=== PATIENT | male | born 1980 | race Caucasian/White ===

== ENCOUNTER 2017-12-05 14:38 | Emergency (ER) | payer MEDICAID, OTHER ==
[2017-12-05] MEDS ORDERED: Zofran 4 MG/2 ML VIAL ONE (14:51)
[2017-12-05] MEDS ORDERED: Zofran 4 MG/2 ML VIAL IV ONE (14:52)
[2017-12-05] MEDS ORDERED: Phenergan 25 MG INJ IV ONE (15:01)
[2017-12-05] MEDS ORDERED: Phenergan 25 MG INJ ONE (15:05)
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
[2017-12-05] MEDS ORDERED: MORPHINE SULFATE 4 MG INJ IV ONE (15:15)
[2017-12-05] MEDS ORDERED: Sodium Chloride 0.9% 1000 ML 1,000 ML IV STA (15:15)
[2017-12-05] MEDS ORDERED: Sodium Chloride 0.9% 1000 ML 1,000 ML ONE (15:21)
[2017-12-05] MEDS ORDERED: MORPHINE SULFATE 4 MG INJ ONE (15:21)
[2017-12-05 15:39] LABS: BASOPHIL % 0.3 % (0.0-0.4); Basophil (Absolute #) 0.05 (0-0.4); Eosinophil % 0.7 % (0.00-5.0); Granulocyte Absolute (ANC) 10.99 (1.4-6.9); Granulocytes % 75.9 % (36.0-66.0); Hematocrit 46.7 % (42-50); Hemoglobin 16.4 gm/dl (12.5-18.0); Lymphocyte (Absolute #) 2.02 (1.0-4.6); Mean Cell Volume 88.4 fl (78-100); Mean Corpuscular Hemoglobin 31.1 pg (26-32); Mean Corpuscular Hgb Concent. 35.1 g/dl (32-36); Mean Platelet Volume 10.3 fl (6-9.5); Monocyte (Absolute #) 1.32 (0.0-1.3); Monocytes % 9.1 % (0.0-12.0); Platelet Count 265 K/mm3 (150-450); Red Blood Count 5.28 M/mm3 (4.1-5.6); Red Cell Distribution Width 13.6 % (11.5-14.0); White Blood Count 14.5 K/mm3 (4.0-10.5)
[2017-12-05 16:14] LABS: ALBUMIN 4.5 g/dL (3.5-5.0); ALKALINE PHOSPHATASE 74 U/L (38-126); ANION GAP 16.2 MEQ/L (5-15); BLOOD UREA NITROGEN 12 mg/dL (9-20); CHLORIDE 105 mmol/L (98-107); Calcium 9.6 mg/dL (8.4-10.2); Carbon Dioxide 23 mmol/L (22-30); Creatinine 1 0.95 mg/dL (0.66-1.25); Glucose 85 mg/dL (74-106); LIPASE 40 U/L (23-300); Potassium 4.2 mmol/L (3.5-5.1); SGOT/AST 132 U/L (17-59); SGPT/ALT 281 U/L (0-50); SODIUM 141 mmol/L (137-145); Total Protein 7.1 g/dL (6.3-8.2)
--- NOTE | 2017-12-05 16:18 | XRAY ---
Indication: Abdominal pain and vomiting. Multiple contiguous axial images obtained through the abdomen and pelvis without contrast as ordered. Comparison: CT pelvis March 20, 2012. Lung bases are clear. Heart is not enlarged. Images through the abdomen slightly degraded by respiration artifact. Noncontrasted stomach and bowel loops appear nonobstructed. Normal appendix. No free fluid/air. Faint nonobstructing bilateral nephrocalcinosis. 5 mm round right lobe hepatic hypodense lesion. Remaining liver, gallbladder, pancreas, spleen, adrenal glands, kidneys, ureters, and bladder appear unremarkable for noncontrast exam. Again mild bilateral iliac calcifications. No AAA. Osseous structures intact. No ventral or inguinal hernias. Impression: 1. Respiration artifact. 2. 5 mm round hepatic hypodense lesion, possible cyst. 3. Nonobstructing bilateral nephrocalcinosis. 4. Remaining CT abdomen/pelvis without contrast exam is negative. CTDI 18.41
[2017-12-05 16:19] VITALS: BP 104/56; PULSE 115
[2017-12-05 16:50] LABS: Appearance SLIGHTLY CLOUDY (CLEAR); Bilirubin NEGATIVE (NEGATIVE); Blood LARGE Ery/ul (0-5); Glucose NEGATIVE (NEGATIVE); Ketones SMALL (NEGATIVE); Leukocyte Esterase NEGATIVE (NEGATIVE); Nitrite NEGATIVE (NEGATIVE); Protein,Urine Dip 100 (Negative); Specific Gravity 1.023 (1.005-1.025); Urobilinogen 2 mg/dL (0-1)
[2017-12-05 17:22] VITALS: O2SAT 94
== END 2017-12-05 17:31 | disposition left against medical advice (07) ==
LOC: ED 14:38
DX: K92.0 Hematemesis (principal); R10.33 Periumbilical pain; R31.9 Hematuria, unspecified
CPT/HCPCS: 36415; 74176; 80053; 81001; 82271; 83605; 83690; 85025; 87086; 96360; 96374; 96375; 99284; J2270; J2405; J2550

== ENCOUNTER 2017-12-05 18:23 | Emergency (ER) | payer OTHER ==
[2012-01-20 14:12] VITALS: BP 135/83
== END 2017-12-05 19:19 | disposition left against medical advice (07) ==
LOC: ED 18:23
DX: Z53.21 Procedure and treatment not carried out due to patient leaving prior to being seen by health care provider (principal)

== ENCOUNTER 2018-05-31 16:19 | Emergency (ER) | payer OTHER ==
[2018-05-31] MEDS ORDERED: Sodium Chloride 0.9% 1000 ML 1,000 ML IV STA (16:31)
[2018-05-31] MEDS ORDERED: Sodium Chloride 0.9% 1000 ML 1,000 ML ONE (16:32)
[2018-05-31 16:37] LABS: BASOPHIL % 0.6 % (0.0-0.4); Basophil (Absolute #) 0.05 (0-0.4); Eosinophil (Absolute #) 0.26 (0-0.5); Granulocyte Absolute (ANC) 4.77 (1.4-6.9); Granulocytes % 55.4 % (36.0-66.0); Hematocrit 47.4 % (42-50); Hemoglobin 16.2 gm/dl (12.5-18.0); Lymphocyte (Absolute #) 2.64 (1.0-4.6); Lymphocytes % 30.7 % (24.0-44.0); Mean Corpuscular Hemoglobin 31.1 pg (26-32); Mean Corpuscular Hgb Concent. 34.2 g/dl (32-36); Mean Platelet Volume 10.7 fl (6-9.5); Monocyte (Absolute #) 0.89 (0.0-1.3); Monocytes % 10.3 % (0.0-12.0); Platelet Count 230 K/mm3 (150-450); Red Blood Count 5.21 M/mm3 (4.1-5.6); Red Cell Distribution Width 13.2 % (11.5-14.0); White Blood Count 8.6 K/mm3 (4.0-10.5)
[2018-05-31] MEDS ORDERED: Zofran 4 MG/2 ML VIAL IV ONE (16:41)
[2018-05-31] MEDS ORDERED: TORAdol 30 mg Injection IV ONE (16:41)
[2018-05-31 16:43] LABS: ALBUMIN 3.9 g/dL (3.5-5.0); ALKALINE PHOSPHATASE 57 U/L (38-126); AMYLASE 75 U/L (30-110); ANION GAP 12.2 MEQ/L (5-15); BLOOD UREA NITROGEN 14 mg/dL (9-20); CHLORIDE 106 mmol/L (98-107); Calcium 9.4 mg/dL (8.4-10.2); Carbon Dioxide 25 mmol/L (22-30); Creatinine 1 0.77 mg/dL (0.66-1.25); Glucose 96 mg/dL (74-106); LIPASE 67 U/L (23-300); SGOT/AST 95 U/L (17-59); SGPT/ALT 180 U/L (0-50); SODIUM 138 mmol/L (137-145); Total Protein 6.8 g/dL (6.3-8.2)
--- NOTE | 2018-05-31 16:47 | ERPHSYRPT ---
- History of Present Illness Time Seen by Provider: 05/31/18 16:30 Historian: patient Exam Limitations: clinical condition Patient Subjective Stated Complaint: RIGHT LOWER ABD PAIN FOR ONE WEEK. VOMITED YESTERDAY. STATES PAIN IS SHARP. Triage Nursing Assessment: TO ROOM PER EMS COT. SKIN W/D, COLOR NORMAL, RESP EASY. ABD SOFT, GUARDING RLQ. Physician History: PATIENT WITH A HISTORY OF KIDNEY STONES COMPLAINS OF RIGHT LOWER ABDOMINAL PAINS FOR 2 WEEKS, ASSOCIATED WITH NAUSEA, DENIES EMESIS, FEVER OR URINARY SYMPTOMS FREQUENCY, URGENCY OR DYSURIA. Timing/Duration: week(s) Activities at Onset: none Quality: stabbing Abdominal Pain Onset Location: LLQ Pain Radiation: no radiation Severity of Pain-Max: severe Severity of Pain-Current: severe Modifying Factors: Improves With: nothing Associated Symptoms: denies symptoms Previous symptoms: same symptoms as today Allergies/Adverse Reactions: No Known Drug Allergies Allergy (Verified 05/31/18 16:28) Home Medications: No Home Meds [No Home Meds] 08/02/13 [History] Hx Tetanus, Diphtheria Vaccination/Date Given: Yes (2014) Hx Influenza Vaccination/Date Given: No Hx Pneumococcal Vaccination/Date Given: No - Review of Systems Constitutional: No Fever, No Chills Eyes: No Symptoms Ears, Nose, & Throat: No Symptoms Respiratory: No Symptoms, No Cough, No Dyspnea Cardiac: No Symptoms, No Chest Pain, No Edema, No Syncope Abdominal/Gastrointestinal: Abdominal Pain, Nausea, No Vomiting, No Diarrhea Genitourinary Symptoms: No Symptoms, No Dysuria Musculoskeletal: No Symptoms, No Back Pain, No Neck Pain Skin: No Rash Neurological: No Dizziness, No Focal Weakness, No Sensory Changes Psychological: No Symptoms Endocrine: No Symptoms All Other Systems: Reviewed and Negative - Past Medical History Pertinent Past Medical History: No Neurological History: No Pertinent History ENT History: No Pertinent History Cardiac History: No Pertinent History Respiratory History: No Pertinent History Endocrine Medical History: No Pertinent History Musculoskeletal History: No Pertinent History GI Medical History: No Pertinent History Psycho-Social History: No Pertinent History Male Reproductive Disorders: No Pertinent History - Past Surgical History Past Surgical History: Yes Neuro Surgical History: No Pertinent History Respiratory: No Pertinent History Gastrointestinal: No Pertinent History Genitourinary: No Pertinent History Musculoskeletal: No Pertinent History Other Surgical History: RIGHT ARM SURGERY - Social History Smoking Status: Current every day smoker How long have you smoked: 10 Exposure to second hand smoke: Yes Alcohol Use: Socially Drug Use: marijuana Patient Lives Alone: No Significant Family History: no pertinent family hx - Nursing Vital Signs Nursing Vital Signs: Initial Vital Signs Temperature 97.9 F 05/31/18 16:21 Pulse Rate 76 05/31/18 16:21 Respiratory Rate 16 05/31/18 16:21 Blood Pressure 129/72 05/31/18 16:21 O2 Sat by Pulse Oximetry 97 05/31/18 16:21 Pain Scale Pain Intensity 5 - Physical Exam General Appearance: moderate distress, alert Eye Exam: PERRL/EOMI, eyes nml inspection Ears, Nose, Throat Exam: normal ENT inspection, pharynx normal, moist mucous membranes Neck Exam: normal inspection, non-tender, supple, full range of motion Respiratory Exam: normal breath sounds, lungs clear, No respiratory distress Cardiovascular Exam: regular rate/rhythm, normal heart sounds Gastrointestinal/Abdomen Exam: soft, normal bowel sounds, tenderness (RIGHT LOWER QUAD TENDERNESS), other (WITH GUARDING), No mass Back Exam: normal inspection, normal range of motion, No CVA tenderness, No vertebral tenderness Extremity Exam: normal inspection, normal range of motion, pelvis stable Neurologic Exam: alert, oriented x 3, cooperative, normal mood/affect, nml cerebellar function, sensation nml, No motor deficits Skin Exam: normal color, warm, dry Lymphatic Exam: inguinal node tender (L) SpO2: 97 - CT Exams Abdomen/Pelvis CT Interpretation: Tele-radiologist Report (NORMAL APPENDIX, THERE IS PUNCTATE NONOBSTRUCTING RIGHT NEPHROLITHIASIS) Ordered Tests: Active Orders 24 hr Category Date Time Status Clean Catch Urine Specimen STAT Care 05/31/18 16:31 Active IV Insertion STAT Care 05/31/18 16:31 Active ABDOMEN AND PELVIS W&WO CONTRA [CT] Stat Exams 05/31/18 16:39 Taken AMYLASE Stat Lab 05/31/18 16:35 Completed CBC W DIFF Stat Lab 05/31/18 16:35 Completed CMP Stat Lab 05/31/18 16:35 Completed LIPASE Stat Lab 05/31/18 16:35 Completed UA W/RFX UR CULTURE Stat Lab 05/31/18 16:45 Completed Urine Triage Profile Stat Lab 05/31/18 16:45 Completed Medication Summary Discontinued Medications Generic Name Dose Route Start Last Admin Trade Name Freq PRN Reason Stop Dose Admin Hydromorphone HCl 1 mg 05/31/18 16:52 05/31/18 16:57 Hydromorphone 1 Mg/Ml Ampule IV 05/31/18 16:53 1 mg STAT ONE Administration Hydromorphone HCl Confirm 05/31/18 16:54 Hydromorphone 1 Mg/Ml Ampule Administered 05/31/18 16:55 Dose 1 mg .ROUTE .STK-MED ONE Sodium Chloride 1,000 mls @ 999 mls/hr 05/31/18 16:31 05/31/18 17:52 Sodium Chloride 0.9% 1000 Ml IV 05/31/18 17:31 Infused .Q1H1M STA Infusion Sodium Chloride Confirm 05/31/18 16:32 Sodium Chloride 0.9% 1000 Ml Administered 05/31/18 16:33 Dose 1,000 mls @ ud .ROUTE .STK-MED ONE Ketorolac Tromethamine 30 mg 05/31/18 16:41 05/31/18 16:55 Toradol 30 Mg Injection IV 05/31/18 16:42 30 mg STAT ONE Administration Ketorolac Tromethamine Confirm 05/31/18 16:50 Toradol 30 Mg Injection Administered 05/31/18 16:51 Dose 30 mg .ROUTE .STK-MED ONE Ondansetron HCl 4 mg 05/31/18 16:41 05/31/18 16:55 Zofran 4 Mg/2 Ml Vial IV 05/31/18 16:42 4 mg STAT ONE Administration Ondansetron HCl Confirm 05/31/18 16:50 Zofran 4 Mg/2 Ml Vial Administered 05/31/18 16:51 Dose 4 mg .ROUTE .STK-MED ONE Lab/Rad Data: Laboratory Result Diagrams 05/31/18 16:35 05/31/18 16:35 Laboratory Results 05/31/18 05/31/18 05/31/18 Range/Units 16:45 16:45 16:35 WBC (4.0-10.5) K/mm3 RBC (4.1-5.6) M/mm3 Hgb (12.5-18.0) gm/dl Hct (42-50) % MCV (78-100) fl MCH (26-32) pg MCHC (32-36) g/dl RDW (11.5-14.0) % Plt Count (150-450) K/mm3 MPV (6-9.5) fl Gran % (36.0-66.0) % Eos # (Auto) (0-0.5) Absolute Lymphs (auto) (1.0-4.6) Absolute Monos (auto) (0.0-1.3) Lymphocytes % (24.0-44.0) % Monocytes % (0.0-12.0) % Eosinophils % (0.00-5.0) % Basophils % (0.0-0.4) % Absolute Granulocytes (1.4-6.9) Basophils # (0-0.4) Sodium 138 (137-145) mmol/L Potassium 4.0 (3.5-5.1) mmol/L Chloride 106 (98-107) mmol/L Carbon Dioxide 25 (22-30) mmol/L Anion Gap 12.2 (5-15) MEQ/L BUN 14 (9-20) mg/dL Creatinine 0.77 (0.66-1.25) mg/dL Estimated GFR > 60.0 ML/MIN Glucose 96 (74-106) mg/dL Calcium 9.4 (8.4-10.2) mg/dL Total Bilirubin 0.50 (0.2-1.3) mg/dL AST 95 H (17-59) U/L ALT 180 H (0-50) U/L Alkaline Phosphatase 57 (38-126) U/L Serum Total Protein 6.8 (6.3-8.2) g/dL Albumin 3.9 (3.5-5.0) g/dL Amylase 75 (30-110) U/L Lipase 67 (23-300) U/L Urine Color YELLOW (YELLOW) Urine Appearance CLEAR (CLEAR) Urine pH 6.0 (5-6) Ur Specific [place] 1.017 (1.005-1.025) Urine Protein NEGATIVE (Negative) Urine Ketones NEGATIVE (NEGATIVE) Urine Blood NEGATIVE (0-5) Oswaldo/ul Urine Nitrite NEGATIVE (NEGATIVE) Urine Bilirubin NEGATIVE (NEGATIVE) Urine Urobilinogen 2 (0-1) mg/dL Ur Leukocyte Esterase NEGATIVE (NEGATIVE) Urine WBC (Auto) NONE (0-5) /HPF Urine RBC (Auto) NONE (0-2) /HPF U Epithel Cells (Auto) NONE (FEW) /HPF Urine Bacteria (Auto) NONE (NEGATIVE) /HPF Urine Culture Reflexed NO (NO) Urine Glucose NEGATIVE (NEGATIVE) mg/dL Urine Opiates Level NEGATIVE (NEGATIVE) Ur Methadone NEGATIVE (NEGATIVE) Urine Barbiturates NEGATIVE (NEGATIVE) Ur Phencyclidine (PCP) NEGATIVE (NEGATIVE) Urine Amphetamine NEGATIVE (NEGATIVE) U Benzodiazepine Level NEGATIVE (NEGATIVE) Urine Cocaine NEGATIVE (NEGATIVE) Urine Marijuana (THC) POSITIVE (NEGATIVE) 05/31/18 Range/Units 16:35 WBC 8.6 (4.0-10.5) K/mm3 RBC 5.21 (4.1-5.6) M/mm3 Hgb 16.2 (12.5-18.0) gm/dl Hct 47.4 (42-50) % MCV 91.0 (78-100) fl MCH 31.1 (26-32) pg MCHC 34.2 (32-36) g/dl RDW 13.2 (11.5-14.0) % Plt Count 230 (150-450) K/mm3 MPV 10.7 H (6-9.5) fl Gran % 55.4 (36.0-66.0) % Eos # (Auto) 0.26 (0-0.5) Absolute Lymphs (auto) 2.64 (1.0-4.6) Absolute Monos (auto) 0.89 (0.0-1.3) Lymphocytes % 30.7 (24.0-44.0) % Monocytes % 10.3 (0.0-12.0) % Eosinophils % 3.0 (0.00-5.0) % Basophils % 0.6 (0.0-0.4) % Absolute Granulocytes 4.77 (1.4-6.9) Basophils # 0.05 (0-0.4) Sodium (137-145) mmol/L Potassium (3.5-5.1) mmol/L Chloride (98-107) mmol/L Carbon Dioxide (22-30) mmol/L Anion Gap (5-15) MEQ/L BUN (9-20) mg/dL Creatinine (0.66-1.25) mg/dL Estimated GFR ML/MIN Glucose (74-106) mg/dL Calcium (8.4-10.2) mg/dL Total Bilirubin (0.2-1.3) mg/dL AST (17-59) U/L ALT (0-50) U/L Alkaline Phosphatase (38-126) U/L Serum Total Protein (6.3-8.2) g/dL Albumin (3.5-5.0) g/dL Amylase (30-110) U/L Lipase (23-300) U/L Urine Color (YELLOW) Urine Appearance (CLEAR) Urine pH (5-6) Ur Specific [place] (1.005-1.025) Urine Protein (Negative) Urine Ketones (NEGATIVE) Urine Blood (0-5) Oswaldo/ul Urine Nitrite (NEGATIVE) Urine Bilirubin (NEGATIVE) Urine Urobilinogen (0-1) mg/dL Ur Leukocyte Esterase (NEGATIVE) Urine WBC (Auto) (0-5) /HPF Urine RBC (Auto) (0-2) /HPF U Epithel Cells (Auto) (FEW) /HPF Urine Bacteria (Auto) (NEGATIVE) /HPF Urine Culture Reflexed (NO) Urine Glucose (NEGATIVE) mg/dL Urine Opiates Level (NEGATIVE) Ur Methadone (NEGATIVE) Urine Barbiturates (NEGATIVE) Ur Phencyclidine (PCP) (NEGATIVE) Urine Amphetamine (NEGATIVE) U Benzodiazepine Level (NEGATIVE) Urine Cocaine (NEGATIVE) Urine Marijuana (THC) (NEGATIVE) - Progress Progress: improved, pain not gone completely Progress Note: 05/31/18 17:20 IV NORMAL SALINE 1000ML/HR, ZOFRAN 4MG, TORADOL 30MG, DILAUDID 1MG IV Counseled pt/family regarding: lab results, diagnosis, need for follow-up, rad results - Departure Departure Disposition: Home Clinical Impression: RIGHT NONOBSTRUCTING NEPHROLITHIASIS Condition: Stable Critical Care Time: No Referrals: DOCTOR,NO FAMILY [NON-STAFF PHY W/O PRIVILEGES] - Additional Instructions: CALL UROLOGIST DR KENNEDY IN 3 DAYS FOR APPOINTMENT . STRAIN YOUR URINE FOR 1 WEEK. TORADOL 10MG EVERY 6 HOURS NEEDED FOR PAIN. FLOMAX 0.4MG DAILY FOR 10 DAYS. ALSO CONSULT YOUR PRIMARY CARE PROVIDER FOR FOLLOWUP. Prescriptions: Ketorolac Tromethamine [Toradol] 10 mg PO Q6HPRN PRN #20 tablet PRN Reason: Pain Tamsulosin HCl 0.4 mg [Flomax 0.4 MG] 0.4 mg PO DAILY #10 cap
[2018-05-31] MEDS ORDERED: TORAdol 30 mg Injection ONE (16:50)
[2018-05-31] MEDS ORDERED: Zofran 4 MG/2 ML VIAL ONE (16:50)
[2018-05-31] MEDS ORDERED: Hydromorphone 1 mg/ml Ampule IV ONE (16:52)
[2018-05-31 16:53] LABS: Appearance CLEAR (CLEAR); Bilirubin NEGATIVE (NEGATIVE); Blood NEGATIVE Ery/ul (0-5); Glucose NEGATIVE (NEGATIVE); Ketones NEGATIVE (NEGATIVE); Leukocyte Esterase NEGATIVE (NEGATIVE); Nitrite NEGATIVE (NEGATIVE); Protein,Urine Dip NEGATIVE (Negative); Specific Gravity 1.017 (1.005-1.025); Urobilinogen 2 mg/dL (0-1)
[2018-05-31] MEDS ORDERED: Hydromorphone 1 mg/ml Ampule ONE (16:54)
[2018-05-31 17:07] LABS: Amphetamine,Urine NEGATIVE (NEGATIVE); Barbiturate,Urine NEGATIVE (NEGATIVE); Benzodiazepine,Urine NEGATIVE (NEGATIVE); Cocaine,Urine NEGATIVE (NEGATIVE); Methadone,Urine NEGATIVE (NEGATIVE); Opiate,Urine NEGATIVE (NEGATIVE); PCP,Urine NEGATIVE (NEGATIVE); THC,Urine POSITIVE (NEGATIVE)
[2018-05-31 18:45] VITALS: O2SAT 97
[2018-05-31 18:50] VITALS: BP 123/80; PULSE 77
--- NOTE | 2018-06-03 15:11 | XRAY ---
Indication: Right lower abdomen pain 1 week. Emesis. Multiple contiguous axial images obtained through the abdomen and pelvis prior to and following 80 cc Isovue 370 contrast as ordered. Comparison: December 05, 2017. Lung bases remain clear. Heart is not enlarged. Noncontrasted images demonstrates stable nonobstructing faint bilateral nephrocalcinosis. No new pathologic visceral calcification/calculi. Noncontrasted stomach and bowel loops appear nonobstructed. Normal appendix. There is now moderate diffuse scattered colonic fecal debris throughout. No free fluid/air. Postcontrast images demonstrates normal visceral enhancement and renal excretion. Stable subcentimeter hepatic cyst. Spleen remains enlarged measuring 13.8 cm in greatest axial dimension. Remaining liver, gallbladder, pancreas, spleen, adrenal glands, kidneys, ureters, bladder, and aorta appear unremarkable. No pathologic retroperitoneal lymphadenopathy. Osseous structures intact. No ventral or inguinal hernias. Impression: 1. Stable nonobstructing bilateral nephrocalcinosis. 2. Stable tiny hepatic cyst and splenomegaly. 3. New fecal stasis without obstruction. 4. Remaining CT abdomen/pelvis with and without contrast exam is negative. Comment: Preliminary interpretation was made by C. No critical discrepancy. CTDI 20.65
== END 2018-05-31 18:56 | disposition home or self-care (01) ==
LOC: ED 16:19
DX: N20.0 Calculus of kidney (principal)
CPT/HCPCS: 36000; 36415; 74178; 80053; 80307; 81001; 82150; 83690; 85025; 96360; 96374; 96375; 99284; J1170; J1885; J2405

== ENCOUNTER 2018-10-31 20:15 | Emergency (ER) | payer OTHER ==
[2018-10-31 20:31] LABS: BASOPHIL % 0.6 % (0.0-0.4); Basophil (Absolute #) 0.05 (0-0.4); Eosinophil % 3.6 % (0.00-5.0); Eosinophil (Absolute #) 0.28 (0-0.5); Granulocyte Absolute (ANC) 4.64 (1.4-6.9); Granulocytes % 58.9 % (36.0-66.0); Hematocrit 46.5 % (42-50); Lymphocyte (Absolute #) 2.23 (1.0-4.6); Lymphocytes % 28.3 % (24.0-44.0); Mean Cell Volume 89.9 fl (78-100); Mean Corpuscular Hemoglobin 30.9 pg (26-32); Mean Corpuscular Hgb Concent. 34.4 g/dl (32-36); Mean Platelet Volume 11.1 fl (6-9.5); Monocyte (Absolute #) 0.68 (0.0-1.3); Monocytes % 8.6 % (0.0-12.0); Platelet Count 221 K/mm3 (150-450); Red Blood Count 5.17 M/mm3 (4.1-5.6); Red Cell Distribution Width 13.3 % (11.5-14.0); White Blood Count 7.9 K/mm3 (4.0-10.5)
[2018-10-31 20:42] LABS: ANION GAP 13.6 MEQ/L (5-15); BLOOD UREA NITROGEN 15 mg/dL (9-20); CHLORIDE 105 mmol/L (98-107); Calcium 9.3 mg/dL (8.4-10.2); Carbon Dioxide 25 mmol/L (22-30); Creatinine 1 0.84 mg/dL (0.66-1.25); Glucose 122 mg/dL (74-106); Potassium 3.6 mmol/L (3.5-5.1); SODIUM 139 mmol/L (137-145)
[2018-10-31 20:42] LABS: Appearance SLIGHTLY CLOUDY (CLEAR); Bacteria FEW /HPF (NEGATIVE); Bilirubin NEGATIVE (NEGATIVE); Blood LARGE Ery/ul (0-5); Epithelial Cells FEW /HPF (FEW); Glucose NEGATIVE (NEGATIVE); Ketones TRACE (NEGATIVE); Leukocyte Esterase NEGATIVE (NEGATIVE); Mucus MODERATE /HPF (NEGATIVE); Nitrite NEGATIVE (NEGATIVE); Protein,Urine Dip 100 (Negative); Specific Gravity 1.029 (1.005-1.025); Urobilinogen 2 mg/dL (0-1)
[2018-10-31 20:47] LABS: ETHYL ALCOHOL < 10 mg/dL (0-10)
[2018-10-31 20:50] LABS: Barbiturate,Urine NEGATIVE (NEGATIVE); Benzodiazepine,Urine NEGATIVE (NEGATIVE); Cocaine,Urine NEGATIVE (NEGATIVE); Methadone,Urine NEGATIVE (NEGATIVE); Opiate,Urine NEGATIVE (NEGATIVE); PCP,Urine NEGATIVE (NEGATIVE); THC,Urine POSITIVE (NEGATIVE)
[2018-10-31 21:10] LABS: RBC >101 /HPF (0-2)
[2018-10-31 21:20] LABS: Amphetamine,Urine POSITIVE (NEGATIVE)
[2018-10-31] MEDS ORDERED: TYLENOL 325 MG PO ONE (22:24)
[2018-10-31] MEDS ORDERED: Phenergan 25 MG INJ IM ONE (22:24)
[2018-10-31] MEDS ORDERED: BABY ASPIRIN 81 MG CHEW PO ONE (22:26)
[2018-10-31] MEDS ORDERED: TYLENOL 325 MG ONE (22:40)
[2018-10-31] MEDS ORDERED: Phenergan 25 MG INJ ONE (22:40)
[2018-10-31] MEDS ORDERED: BABY ASPIRIN 81 MG CHEW ONE (22:40)
--- NOTE | 2018-10-31 23:19 | ERPHSYRPT ---
- History of Present Illness Source: patient, family Exam Limitations: no limitations, clinical condition Patient Subjective Stated Complaint: pt's girlfriend states, "he's had vomiting today x4 hours, his speech became slurred the last hour and pt c/o numbness around his rt eye". Triage Nursing Assessment: pt alert and oriented x2, speech is garbled. girlfriend at bedside. Lungs clear, heart tones reg, abd soft with active bs x4 quad, non-tender. Pt denies headache but has a numbness over his right eye. Pupils are pinpoint. Pt states vision is blurry. Physician History: Pt is a 38 y/o male with a h/o previous CVA, that presented to the ED with symptoms of CVA. Pt states, he was vomiting today, multiple times, and then he felt something pop in his R eye, and he had numbness of the R face, could not open his R eye, and had slurred speech. Secondary to it, pt came to the ED. Timing/Duration: today Severity: moderate Character of Deficits: Right Facial, vision problems Deficits: no difficulties Baseline/Normal Cognition: alert oriented x 3 Baseline Gait: walks w/o assistance Associated Symptoms: nausea, vomiting, paresthesia (of the R face), slurred speech, vision changes Allergies/Adverse Reactions: No Known Drug Allergies Allergy (Verified 05/31/18 16:28) Home Medications: No Home Meds [No Home Meds] 08/02/13 [History] Hx Tetanus, Diphtheria Vaccination/Date Given: Yes Hx Influenza Vaccination/Date Given: No Hx Pneumococcal Vaccination/Date Given: No Immunizations Up to Date: Yes - Review of Systems Constitutional: No Fever, No Chills Eyes: Vision Changes Ears, Nose, & Throat: Other (slurred speech, and numbness of R side of face) Respiratory: No Cough, No Dyspnea Cardiac: No Chest Pain, No Edema, No Syncope Abdominal/Gastrointestinal: No Abdominal Pain, No Nausea, No Vomiting, No Diarrhea Neurological: Focal Weakness (of R side of face), Headache, Parasthesia (of R face), Speech Changes - Past Medical History Pertinent Past Medical History: Yes Neurological History: No Pertinent History ENT History: No Pertinent History Cardiac History: No Pertinent History Respiratory History: No Pertinent History Endocrine Medical History: No Pertinent History Musculoskeletal History: No Pertinent History GI Medical History: No Pertinent History History: Kidney Cancer Psycho-Social History: Anxiety, Depression Male Reproductive Disorders: No Pertinent History - Past Surgical History Past Surgical History: Yes Neuro Surgical History: No Pertinent History Cardiac: No Pertinent History Respiratory: No Pertinent History Gastrointestinal: No Pertinent History Genitourinary: No Pertinent History Musculoskeletal: No Pertinent History Male Surgical History: No Pertinent History Other Surgical History: RIGHT ARM SURGERY - Social History Smoking Status: Current every day smoker How long have you smoked: 10 years Exposure to second hand smoke: Yes Alcohol Use: Socially Drug Use: marijuana Patient Lives Alone: No Significant Family History: no pertinent family hx - Nursing Vital Signs Nursing Vital Signs: Initial Vital Signs Temperature 97.5 F 10/31/18 20:15 Pulse Rate 79 10/31/18 20:15 Respiratory Rate 18 10/31/18 20:15 Blood Pressure 125/81 10/31/18 20:15 O2 Sat by Pulse Oximetry 97 10/31/18 20:15 Pain Scale Pain Intensity 7 - [place] Coma Scale Best Eye Response (Veronique): (4) open spontaneously Best Verbal Response (Veronique): (5) oriented Best Motor Response ([place]): (6) obeys commands Veronique Total: 15 - Physical Exam General Appearance: moderate distress, alert Eye Exam: bilateral eye: normal inspection, PERRL, EOMI Ears, Nose, Throat Exam: normal ENT inspection, moist mucous membranes Neck Exam: normal inspection, non-tender, supple Respiratory: normal breath sounds, lungs clear, airway intact, No respiratory distress Cardiovascular: regular rate/rhythm, No edema Gastrointestinal: soft, No tenderness, No distention Back Exam: normal inspection Extremity Exam: normal inspection, No pedal edema Mental Status: alert, oriented x 3 esthetician/skin therapist Exam: abnormal speech, facial droop (on R. ), facial paresthesias (On R) Coordination/Gait: normal finger to nose, normal gait Skin Exam: other (multiple abscess all over the extremities, probably from picking) SpO2 Interpretation: normal SpO2: 98 O2 Delivery: Room Air - Course Nursing assessment & vital signs reviewed: Yes - CT Exams Head CT Interpretation: Tele-radiologist Report (Old basal ganglia infarct) Ordered Tests: Active Orders 24 hr Category Date Time Status EKG-ER Only STAT Care 10/31/18 20:16 Active IV Insertion STAT Care 10/31/18 20:16 Active IV Insertion-2nd Peripheral STAT Care 10/31/18 20:16 Active NPO (ED) STAT Care 10/31/18 20:16 Active NPO (ED) STAT Care 10/31/18 20:16 Active Oxygen-ED Only Nasal Cannula 2 lpm Care 10/31/18 20:16 Active HEAD WITHOUT CONTRAST [CT] Stat Exams 10/31/18 20:40 Taken BMP Stat Lab 10/31/18 20:25 Completed CBC W DIFF Stat Lab 10/31/18 20:25 Completed CULTURE,URINE Stat Lab 10/31/18 20:20 Received ETHYL ALCOHOL Stat Lab 10/31/18 20:25 Completed PTT Stat Lab 10/31/18 20:25 Completed TROPONIN Q3H Lab 10/31/18 20:25 Completed TROPONIN Q3H Lab 10/31/18 23:30 Ordered TROPONIN Q3H Lab 11/01/18 02:30 Ordered TROPONIN Q3H Lab 11/01/18 05:30 Ordered TROPONIN Q3H Lab 11/01/18 08:30 Ordered UA W/RFX UR CULTURE Stat Lab 10/31/18 20:20 Completed Urine Triage Profile Stat Lab 10/31/18 20:20 Completed Medication Summary Discontinued Medications Generic Name Dose Route Start Last Admin Trade Name Freq PRN Reason Stop Dose Admin Acetaminophen 975 mg 10/31/18 22:24 10/31/18 22:43 Tylenol 325 Mg PO 10/31/18 22:25 975 mg STAT ONE Administration Acetaminophen Confirm 10/31/18 22:40 Tylenol 325 Mg Administered 10/31/18 22:41 Dose 975 mg .ROUTE .STK-MED ONE Aspirin 81 mg 10/31/18 22:26 10/31/18 22:44 Baby Aspirin 81 Mg Chew PO 10/31/18 22:27 81 mg STAT ONE Administration Aspirin Confirm 10/31/18 22:40 Baby Aspirin 81 Mg Chew Administered 10/31/18 22:41 Dose 81 mg .ROUTE .STK-MED ONE Promethazine HCl 25 mg 10/31/18 22:24 10/31/18 22:42 Phenergan 25 Mg Inj IM 10/31/18 22:25 25 mg STAT ONE Administration Promethazine HCl Confirm 10/31/18 22:40 Phenergan 25 Mg Inj Administered 10/31/18 22:41 Dose 25 mg .ROUTE .STK-MED ONE Lab/Rad Data: Laboratory Result Diagrams 10/31/18 20:25 10/31/18 20:25 Laboratory Results 10/31/18 10/31/18 10/31/18 Range/Units 20:25 20:25 20:25 WBC (4.0-10.5) K/mm3 RBC (4.1-5.6) M/mm3 Hgb (12.5-18.0) gm/dl Hct (42-50) % MCV (78-100) fl MCH (26-32) pg MCHC (32-36) g/dl RDW (11.5-14.0) % Plt Count (150-450) K/mm3 MPV (6-9.5) fl Gran % (36.0-66.0) % Eos # (Auto) (0-0.5) Absolute Lymphs (auto) (1.0-4.6) Absolute Monos (auto) (0.0-1.3) Lymphocytes % (24.0-44.0) % Monocytes % (0.0-12.0) % Eosinophils % (0.00-5.0) % Basophils % (0.0-0.4) % Absolute Granulocytes (1.4-6.9) Basophils # (0-0.4) APTT 27.6 (24.1-36.1) SECONDS Sodium 139 (137-145) mmol/L Potassium 3.6 (3.5-5.1) mmol/L Chloride 105 (98-107) mmol/L Carbon Dioxide 25 (22-30) mmol/L Anion Gap 13.6 (5-15) MEQ/L BUN 15 (9-20) mg/dL Creatinine 0.84 (0.66-1.25) mg/dL Estimated GFR > 60.0 ML/MIN Glucose 122 H (74-106) mg/dL Calcium 9.3 (8.4-10.2) mg/dL Troponin I < 0.012 (0.000-0.034) ng/mL Urine Color (YELLOW) Urine Appearance (CLEAR) Urine pH (5-6) Ur Specific [place] (1.005-1.025) Urine Protein (Negative) Urine Ketones (NEGATIVE) Urine Blood (0-5) Oswaldo/ul Urine Nitrite (NEGATIVE) Urine Bilirubin (NEGATIVE) Urine Urobilinogen (0-1) mg/dL Ur Leukocyte Esterase (NEGATIVE) Urine WBC (Auto) (0-5) /HPF Urine RBC (Auto) (0-2) /HPF U Hyaline Cast (Auto) (0-2) /LPF U Epithel Cells (Auto) (FEW) /HPF Urine Bacteria (Auto) (NEGATIVE) /HPF Other Casts (Auto) (NEGATIVE) /LPF Urine Mucus (Auto) (NEGATIVE) /HPF Urine Culture Reflexed (NO) Urine Glucose (NEGATIVE) mg/dL Urine Opiates Level (NEGATIVE) Ur Methadone (NEGATIVE) Urine Barbiturates (NEGATIVE) Ur Phencyclidine (PCP) (NEGATIVE) Urine Amphetamine (NEGATIVE) U Benzodiazepine Level (NEGATIVE) Urine Cocaine (NEGATIVE) Urine Marijuana (THC) (NEGATIVE) Ethyl Alcohol < 10 (0-10) mg/dL 10/31/18 10/31/18 10/31/18 Range/Units 20:25 20:20 20:20 WBC 7.9 (4.0-10.5) K/mm3 RBC 5.17 (4.1-5.6) M/mm3 Hgb 16.0 (12.5-18.0) gm/dl Hct 46.5 (42-50) % MCV 89.9 (78-100) fl MCH 30.9 (26-32) pg MCHC 34.4 (32-36) g/dl RDW 13.3 (11.5-14.0) % Plt Count 221 (150-450) K/mm3 MPV 11.1 H (6-9.5) fl Gran % 58.9 (36.0-66.0) % Eos # (Auto) 0.28 (0-0.5) Absolute Lymphs (auto) 2.23 (1.0-4.6) Absolute Monos (auto) 0.68 (0.0-1.3) Lymphocytes % 28.3 (24.0-44.0) % Monocytes % 8.6 (0.0-12.0) % Eosinophils % 3.6 (0.00-5.0) % Basophils % 0.6 (0.0-0.4) % Absolute Granulocytes 4.64 (1.4-6.9) Basophils # 0.05 (0-0.4) APTT (24.1-36.1) SECONDS Sodium (137-145) mmol/L Potassium (3.5-5.1) mmol/L Chloride (98-107) mmol/L Carbon Dioxide (22-30) mmol/L Anion Gap (5-15) MEQ/L BUN (9-20) mg/dL Creatinine (0.66-1.25) mg/dL Estimated GFR ML/MIN Glucose (74-106) mg/dL Calcium (8.4-10.2) mg/dL Troponin I (0.000-0.034) ng/mL Urine Color YORDY (YELLOW) Urine Appearance SLIGHTLY CLOUDY (CLEAR) Urine pH 5.0 (5-6) Ur Specific [place] 1.029 (1.005-1.025) Urine Protein 100 (Negative) Urine Ketones TRACE (NEGATIVE) Urine Blood LARGE (0-5) Oswaldo/ul Urine Nitrite NEGATIVE (NEGATIVE) Urine Bilirubin NEGATIVE (NEGATIVE) Urine Urobilinogen 2 (0-1) mg/dL Ur Leukocyte Esterase NEGATIVE (NEGATIVE) Urine WBC (Auto) 11-15 (0-5) /HPF Urine RBC (Auto) >101 (0-2) /HPF U Hyaline Cast (Auto) 3-5 (0-2) /LPF U Epithel Cells (Auto) FEW (FEW) /HPF Urine Bacteria (Auto) FEW (NEGATIVE) /HPF Other Casts (Auto) NEGATIVE (NEGATIVE) /LPF Urine Mucus (Auto) MODERATE (NEGATIVE) /HPF Urine Culture Reflexed YES (NO) Urine Glucose NEGATIVE (NEGATIVE) mg/dL Urine Opiates Level NEGATIVE (NEGATIVE) Ur Methadone NEGATIVE (NEGATIVE) Urine Barbiturates NEGATIVE (NEGATIVE) Ur Phencyclidine (PCP) NEGATIVE (NEGATIVE) Urine Amphetamine POSITIVE (NEGATIVE) U Benzodiazepine Level NEGATIVE (NEGATIVE) Urine Cocaine NEGATIVE (NEGATIVE) Urine Marijuana (THC) POSITIVE (NEGATIVE) Ethyl Alcohol (0-10) mg/dL - Progress Progress: unchanged Progress Note: 10/31/18 23:22 Tele neurology was consulted. She did not recommend TPA. The physician asked for pt to be placed in observation with Neurology consult and MRI tomorrow. She recommended headache medication, and ASA. Work up for hypercoagulable state. The physician is not connected to any hospital sys=tem, and any hospital with neurology is a good option. [facility] accepted pt to ER Dr Stewart. Will see patient in: other (Transfer to [facility]) - Departure Departure Disposition: Transfer Clinical Impression: CVA (cerebral vascular accident) Condition: Stable Critical Care Time: Yes Critical Care Time(excluding separately billable procedures): Critical 30-74 mins Referrals: DAGMAR SALGADO [Primary Care Provider] - Additional Instructions: Pt got ASA 81 mg, Tylenol and Phenergan, for LOPEZ. Pt will be transferred to [place] ER. Dr Stewart is accepting.
[2018-11-01 00:48] VITALS: BP 138/78; PULSE 66; O2SAT 97
--- NOTE | 2018-11-01 09:13 | XRAY ---
Indication: Difficulty with speech. Multiple contiguous axial images obtained through the head without contrast. Comparison: None Ventriculosulcal pattern appears symmetric. Left basal ganglia demonstrates 11 mm round focus of old infarct. No acute intracranial hemorrhage, abnormal extra-axial fluid collection, or mass effect. Fourth ventricle is midline without hydrocephalus. Booth white matter differentiation preserved. Bony calvarium intact. Visualized paranasal sinuses and mastoid air cells are clear. Impression: Remote appearing left basal ganglia infarct. No acute intracranial abnormalities. CT DI 66.37
== END 2018-11-01 00:18 | disposition short-term general hospital (02) ==
LOC: ED 20:15
DX: I63.9 Cerebral infarction, unspecified (principal)
CPT/HCPCS: 36000; 36415; 70450; 80048; 80307; 81001; 84484; 85025; 85730; 87086; 93005; 96372; 99285; 99291; G0480; J2550; A9270-GY

== ENCOUNTER 2019-02-05 09:12 | Emergency (ER) | payer OTHER ==
[2019-02-05 09:15] VITALS: BP 133/87; PULSE 116; O2SAT 96
--- NOTE | 2019-02-05 09:27 | ERPHSYRPT ---
- History of Present Illness Time Seen by Provider: 02/05/19 09:25 Source: patient Exam Limitations: no limitations Physician History: pT IS HERE WITH C/C OF RIGHT HAND PARTICULARLY RIGHT INDEX FINGER PAIN AND SWELLING. PT IS STATING THAT THE PAIN IS EXCRUCIATING. pT IS ALSO STATING THAT HIS LAST TETANUS SHOT WAS 2014. 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 pT HAS AN OLDER LESION ON HIS HAND AND IT LOOKS A BIT MORE INFLAMED. pT WITH A HISTORY OF RANAL CARCINOMA SO DOES NOT TAKE nssaids. pT DID TAKE A GOODY PAIN PACKET WITH ACETAMENOPHEN AND ASPRIN IN IT. Occurred: yesterday Method of Injury: incised (ON A TRUCK THAT HE WAS WORKING ON) Quality: constant, other (THROBBING) Severity of Pain-Max: severe Severity of Pain-Current: severe Extremities Pain Location: 2nd finger: right Modifying Factors: Improves With: nothing Associated Symptoms: nausea, vomiting, other (SWELLING OF THE RIGHT INDEX FINGER ) Allergies/Adverse Reactions: No Known Drug Allergies Allergy (Verified 02/05/19 09:30) Home Medications: No Reportable Medications [No Reported Medications] 02/05/19 [History] Hx Tetanus, Diphtheria Vaccination/Date Given: Yes (2014) Hx Influenza Vaccination/Date Given: No Hx Pneumococcal Vaccination/Date Given: No - Review of Systems Constitutional: Fever, Other (MILD) Eyes: No Symptoms Ears, Nose, & Throat: No Symptoms Respiratory: No Symptoms Cardiac: No Symptoms Abdominal/Gastrointestinal: Vomiting Genitourinary Symptoms: No Symptoms Musculoskeletal: Joint Swelling Skin: Other (TO THE TIP OF THE RIGHT INDEX WITH A SCABBED LESION ON THE RIGHT DORSAL HAND) Neurological: No Symptoms Psychological: No Symptoms - Past Medical History Pertinent Past Medical History: No Neurological History: No Pertinent History ENT History: No Pertinent History Cardiac History: No Pertinent History Respiratory History: No Pertinent History Endocrine Medical History: No Pertinent History Musculoskeletal History: No Pertinent History GI Medical History: No Pertinent History History: Kidney Cancer Psycho-Social History: No Pertinent History Male Reproductive Disorders: No Pertinent History - Past Surgical History Past Surgical History: Yes Neuro Surgical History: No Pertinent History Cardiac: No Pertinent History Respiratory: No Pertinent History Gastrointestinal: No Pertinent History Genitourinary: No Pertinent History Musculoskeletal: No Pertinent History Male Surgical History: No Pertinent History Other Surgical History: RIGHT ARM SURGERY - Social History Smoking Status: Current every day smoker How long have you smoked: 10 Exposure to second hand smoke: Yes Alcohol Use: Socially Drug Use: marijuana Patient Lives Alone: No Significant Family History: no pertinent family hx - Nursing Vital Signs Nursing Vital Signs: Initial Vital Signs Temperature 98.9 F 02/05/19 09:13 Pulse Rate 116 H 02/05/19 09:13 Blood Pressure 133/87 02/05/19 09:13 O2 Sat by Pulse Oximetry 96 02/05/19 09:13 Pain Scale Pain Intensity 2 - Physical Exam General Appearance: mild distress, other (PORTRAYING SEVERE PAIN) Eyes, Ears, Nose, Throat Exam: normal ENT inspection Cardiovascular/Respiratory Exam: chest non-tender, normal breath sounds, regular rate/rhythm, heart sounds normal Abdominal Exam: non-tender, soft ( + BOWEL SOUNDS) Shoulder Exam: normal inspection, no evidence of injury Elbow/Forearm Exam: normal inspection Wrist Exam: normal inspection Hand Exam: normal ROM, abrasions, infection, laceration (Pt has a small cut in the tip of his finger, but pt;s fingers are very dirty from his work such that the laceration is difficult to see but also there is sure to have been dirt in the lesion.), soft tissue tenderness, swelling (MILD SWELLING OF THE RIGHT INDEX FINGER AND DORSAL HAND), No deformity Neuro/Tendon Exam: normal motor functions, no evidence tendon injury, No motor deficit, No tendon function deficit Mental Status Exam: alert, oriented x 3, cooperative, other (IN DRAMATIC PAIN DISPROPORTIONATE TO THE LESION OR SWELLING) SpO2: 96 O2 Delivery: Room Air Ordered Tests: Active Orders 24 hr Category Date Time Status HAND (MINIMUM 3 VIEWS) Stat Exams 02/05/19 10:05 Completed Medication Summary Discontinued Medications Generic Name Dose Route Start Last Admin Trade Name Freq PRN Reason Stop Dose Admin Ceftriaxone Sodium 1,000 mg 02/05/19 09:47 02/05/19 09:57 Rocephin 1000 Mg Inj IM 02/05/19 09:48 1,000 mg STAT ONE Administration Ceftriaxone Sodium Confirm 02/05/19 09:52 Rocephin 1000 Mg Inj Administered 02/05/19 09:53 Dose 1,000 mg .ROUTE .STK-MED ONE Ondansetron HCl 4 mg 02/05/19 09:50 02/05/19 09:57 Zofran Odt 4 Mg PO 02/05/19 09:51 4 mg STAT ONE Administration Ondansetron HCl Confirm 02/05/19 09:52 Zofran Odt 4 Mg Administered 02/05/19 09:53 Dose 4 mg .ROUTE .STK-MED ONE - Progress Progress: improved Progress Note: 02/05/19 10:53 HAND X-RAY WITH OLD FINDINGS BUT NOTHING ACUTE. pARTICULARLY NO FOREIGN BODY - Departure Departure Disposition: Home Clinical Impression: Cellulitis of finger of right hand Condition: Good Critical Care Time: No Referrals: DAGMAR SALGADO [Primary Care Provider] - Instructions: Cellulitis (Skin Infection), Adult (DC) Additional Instructions: tAKE THE ANTIBIOTIC PRESCRIBED - kEFLEX AND FOLLOW UP WITH YOUR pRIMARY CARE PROVIDER OR YOU MAY FOLLOW UP WITH sEE THE LIST. fOLLOW UP WITHIN THE NEXT 1 WEEK. RETUR TO THE ER WITH ANY EMERGENT PROBLEMS.
[2019-02-05] MEDS ORDERED: Rocephin 1000 MG INJ IM ONE (09:47)
[2019-02-05] MEDS ORDERED: ZOFRAN ODT 4 MG PO ONE (09:50)
[2019-02-05] MEDS ORDERED: Rocephin 1000 MG INJ ONE (09:52)
[2019-02-05] MEDS ORDERED: ZOFRAN ODT 4 MG ONE (09:52)
--- NOTE | 2019-02-05 10:17 | XRAY ---
Indication: Pain following injury. Comparison: None 3 views of the right hand demonstrates minimally angulated healing distal 5th metacarpal fracture and ulnar styloid tip well-circumscribed ossification either developmental versus nonunited old fracture. No other bony, articular, or soft tissue abnormalities.
== END 2019-02-05 11:13 | disposition home or self-care (01) ==
LOC: ED 09:12
DX: L03.113 Cellulitis of right upper limb (principal); R11.2 Nausea with vomiting, unspecified
CPT/HCPCS: 73130; 96372; 99284; J0696; Q0162

== ENCOUNTER 2019-04-17 14:22 | Emergency (ER) | payer OTHER ==
[2019-04-17 14:30] VITALS: BP 141/90; PULSE 73; O2SAT 98
== END 2019-04-17 15:14 | disposition left against medical advice (07) ==
LOC: ED 14:22
DX: R51 Headache (principal); R07.9 Chest pain, unspecified
CPT/HCPCS: 99283; G0463

== ENCOUNTER 2022-02-05 18:54 | Emergency (ER) | payer OTHER ==
[2022-02-05 19:21] VITALS: O2SAT 98
[2022-02-05] MEDS ORDERED: Zofran 4 MG/2 ML VIAL IV ONE (19:23)
[2022-02-05] MEDS ORDERED: MORPHINE SULFATE 4 MG INJ IV ONE (19:23)
[2022-02-05] MEDS ORDERED: Sodium Chloride 0.9% 1000 ML 1,000 ML IV STA (19:24)
[2022-02-05] MEDS ORDERED: Sodium Chloride 0.9% 1000 ML 1,000 ML ONE (19:35)
[2022-02-05] MEDS ORDERED: Zofran 4 MG/2 ML VIAL ONE (19:35)
[2022-02-05] MEDS ORDERED: MORPHINE SULFATE 4 MG INJ ONE (19:35)
[2022-02-05 19:54] LABS: Absolute Neutrophil Ct (ANC) 7.85 x10^3/uL (1.4-6.9); Basophil (Absolute #) 0.08 x10^3/uL (0-0.4); Eosinophil % 1.4 % (0.00-5.0); Eosinophil (Absolute #) 0.15 x10^3/uL (0-0.5); Hematocrit 43.8 % (42-50); Hemoglobin 15.3 g/dL (12.5-18.0); Lymphocyte (Absolute #) 2.09 x10^3/uL (1.0-4.6); Lymphocytes % 19.1 % (24.0-44.0); Mean Cell Volume 87.8 fL (78-100); Mean Corpuscular Hemoglobin 30.7 pg (26-32); Mean Corpuscular Hgb Concent. 34.9 g/dL (32-36); Mean Platelet Volume 10.7 fL (7.5-11.0); Monocyte (Absolute #) 0.73 x10^3/uL (0.0-1.3); Monocytes % 6.7 % (0.0-12.0); Neutrophil % 71.6 % (36.0-66.0); Platelet Count 245 x10^3/uL (150-450); Red Blood Count 4.99 x10^6/uL (4.1-5.6); Red Cell Distribution Width 11.9 % (11.5-14.0)
[2022-02-05 20:01] VITALS: BP 118/75
[2022-02-05 20:04] LABS: ALBUMIN 4.5 g/dL (3.5-5.0); ALKALINE PHOSPHATASE 74 U/L (38-126); ANION GAP 13.5 MEQ/L (5-15); BLOOD UREA NITROGEN 19 mg/dL (9-20); CHLORIDE 106 mmol/L (98-107); Calcium 9.6 mg/dL (8.4-10.2); Carbon Dioxide 23 mmol/L (22-30); Creatinine 1 0.78 mg/dL (0.66-1.25); EST GLOMERULAR FILTRATION RATE > 60.0 ML/MIN; Glucose 91 mg/dL (74-106); LIPASE 44 U/L (23-300); Potassium 3.4 mmol/L (3.5-5.1); SGOT/AST 36 U/L (17-59); SGPT/ALT 21 U/L (0-50); SODIUM 139 mmol/L (137-145); Total Protein 7.7 g/dL (6.3-8.2)
[2022-02-05 20:09] VITALS: PULSE 78
[2022-02-05] MEDS ORDERED: Unasyn 1.5GM Vial*** 1.5 G in Sodium Chloride 0.9% 100 ML IV ONE (21:25)
--- NOTE | 2022-02-05 21:34 | ERPHSYRPT ---
- History of Present Illness Time Seen by Provider: 02/05/22 19:09 Source: patient Exam Limitations: no limitations Patient Subjective Stated Complaint: pt states he has been sick to his stomach after he had an urgent care visit for his tooth infection on left lower side of jaw, states he had more pain after his appointment. pt was prescibed clindamycin and naproxin at that appointment yesterday, once he began taking the clindamycin and naproxyn yesterday at 9 pm he began to be nauseated and vomited several times yesterday and today Triage Nursing Assessment: pt is alert and oriented, changing positions frequently in bed due to nausea and pain. pt appears pale and is rubbing left side of jaw. Physician History: 41 years old male presented in the ER with chief complaint of left sided facial pain and swelling for the last couple of days which is progressively worsening. Patient reports he was evaluated at [facility], was prescribed clindamycin and naproxen and his pain is getting worse and has so having multiple episodes of nonprojectile, nonbilious vomiting without hematemesis. Has some abdominal discomfort. No fever or chills reported. Timing/Duration: days (3) Severity: moderate, severe ENT Location: facial, dental Prearrival Treatment: prescription meds Associated Symptoms: poor fluid intake, poor solids intake, swollen glands, tooth pain, No fever Allergies/Adverse Reactions: No Known Drug Allergies Allergy (Verified 04/17/19 14:31) Home Medications: No Reportable Medications [No Reported Medications] 02/05/19 [History] Hx Tetanus, Diphtheria Vaccination/Date Given: Yes (2014) Hx Influenza Vaccination/Date Given: No Hx Pneumococcal Vaccination/Date Given: No Travel Risk - International Travel Have you traveled outside of the country in past 3 weeks: No - Coronavirus Screening Are you exhibiting any of the following symptoms?: No Close contact with a COVID-19 positive Pt in past 14-21 Days: No - Vaccine Status Have you recieved a Covid-19 vaccination: Yes Database Administration Associate: Moderna - Vaccination Dates Date of 2cond Vaccination (if applicable): unknown - Review of Systems Constitutional: No Symptoms Eyes: No Symptoms Ears, Nose, & Throat: Mouth Pain, Mouth Swelling Respiratory: No Symptoms Cardiac: No Symptoms Abdominal/Gastrointestinal: Abdominal Pain, Nausea, Vomiting Genitourinary Symptoms: No Symptoms Musculoskeletal: No Symptoms Neurological: No Symptoms Endocrine: No Symptoms Hematologic/Lymphatic: No Symptoms Immunological/Allergic: No Symptoms - Past Medical History Pertinent Past Medical History: No Neurological History: No Pertinent History ENT History: No Pertinent History Cardiac History: No Pertinent History Respiratory History: No Pertinent History Endocrine Medical History: No Pertinent History Musculoskeletal History: No Pertinent History GI Medical History: No Pertinent History History: Kidney Cancer Psycho-Social History: No Pertinent History Male Reproductive Disorders: No Pertinent History Other Medical History: possibly had stroke in 2019 - Past Surgical History Past Surgical History: Yes Neuro Surgical History: No Pertinent History Cardiac: No Pertinent History Respiratory: No Pertinent History Gastrointestinal: No Pertinent History Genitourinary: No Pertinent History Musculoskeletal: No Pertinent History Male Surgical History: No Pertinent History Other Surgical History: RIGHT ARM SURGERY - Social History Smoking Status: Current every day smoker How long have you smoked: 10 Exposure to second hand smoke: Yes Alcohol Use: Socially Drug Use: marijuana Patient Lives Alone: No Significant Family History: no pertinent family hx - Nursing Vital Signs Nursing Vital Signs: Initial Vital Signs Temperature 97.4 F 02/05/22 19:11 Pulse Rate 65 02/05/22 19:11 Respiratory Rate 18 02/05/22 19:11 Blood Pressure 133/78 02/05/22 19:11 O2 Sat by Pulse Oximetry 98 02/05/22 19:11 Pain Scale Pain Intensity 10 - Physical Exam General Appearance: no apparent distress, alert Eye Exam: bilateral eye: normal inspection, PERRL, EOMI Ear Exam: bilateral ear: auricle normal, canal normal, TM normal Nasal Exam: normal inspection Throat Exam: normal, pharynx normal, dental tenderness (Left lower molar and premolar area with gingival swelling. No fluctuation.) Neck Exam: normal inspection, non-tender, supple, full range of motion, lymphadenopathy (L) Cardiovascular/Respiratory Exam: normal breath sounds, regular rate/rhythm Abdominal Exam: soft, no organomegaly, tenderness (Minimal left upper quadrant tenderness) Neurologic Exam: alert, oriented x 3, cooperative Skin Exam: normal color SpO2 Interpretation: normal SpO2: 98 O2 Delivery: Room Air Ordered Tests: Active Orders 24 hr Category Date Time Status AMA [Release AMA] OM.NOW Care 02/05/22 21:37 Active IV Insertion STAT Care 02/05/22 19:23 Active NPO (ED) STAT Care 02/05/22 19:23 Active FACIAL BONES WO CONTRAST [CT] Stat Exams 02/05/22 19:23 Taken BLOOD CULTURE Stat Lab 02/05/22 20:35 Received CBC W DIFF Stat Lab 02/05/22 19:51 Completed CMP Stat Lab 02/05/22 19:51 Completed LIPASE Stat Lab 02/05/22 19:51 Completed Lactic Acid Stat Lab 02/05/22 19:40 Completed UA W/RFX CULTURE Stat Lab 02/05/22 Ordered Medication Summary Generic Name Dose Route Start Last Admin Trade Name Michael PRN Reason Stop Dose Admin Ampicillin Sodium/Sulbactam 100 mls @ 200 mls/hr 02/05/22 21:25 Sodium 1.5 g/ Sodium Chloride IV 02/05/22 21:54 STAT ONE Discontinued Medications Generic Name Dose Route Start Last Admin Trade Name Freirais PRN Reason Stop Dose Admin Sodium Chloride 1,000 mls @ 999 mls/hr 02/05/22 19:24 02/05/22 19:36 Sodium Chloride 0.9% 1000 Ml IV 02/05/22 20:24 999 mls/hr .Q1H1M STA Administration Sodium Chloride Confirm 02/05/22 19:35 Sodium Chloride 0.9% 1000 Ml Administered 02/05/22 19:36 Dose 1,000 mls @ ud .ROUTE .STK-MED ONE Morphine Sulfate 4 mg 02/05/22 19:23 02/05/22 19:36 Morphine Sulfate 4 Mg/Ml Injection IV 02/05/22 19:24 4 mg STAT ONE Administration Morphine Sulfate Confirm 02/05/22 19:35 Morphine Sulfate 4 Mg/Ml Injection Administered 02/05/22 19:36 Dose 4 mg .ROUTE .STK-MED ONE Ondansetron HCl 4 mg 02/05/22 19:23 02/05/22 19:36 Ondansetron Hcl 4 Mg/2 Ml Vial IV 02/05/22 19:24 4 mg STAT ONE Administration Ondansetron HCl Confirm 02/05/22 19:35 Ondansetron Hcl 4 Mg/2 Ml Vial Administered 02/05/22 19:36 Dose 4 mg .ROUTE .STK-MED ONE Lab/Rad Data: Laboratory Result Diagrams 02/05/22 19:51 02/05/22 19:51 Laboratory Results 02/05/22 02/05/22 02/05/22 Range/Units 19:51 19:51 19:40 WBC 11.0 H (4.0-10.5) x10^3/uL RBC 4.99 (4.1-5.6) x10^6/uL Hgb 15.3 (12.5-18.0) g/dL Hct 43.8 (42-50) % MCV 87.8 (78-100) fL MCH 30.7 (26-32) pg MCHC 34.9 (32-36) g/dL RDW 11.9 (11.5-14.0) % Plt Count 245 (150-450) x10^3/uL MPV 10.7 (7.5-11.0) fL Gran % 71.6 H (36.0-66.0) % Immature Gran % (Auto) 0.5 H (0.00-0.4) % Nucleat RBC Rel Count 0.0 (0.00-0.1) % Eos # (Auto) 0.15 (0-0.5) x10^3/uL Immature Gran # (Auto) 0.05 H (0.00-0.03) x10^3u/L Absolute Lymphs (auto) 2.09 (1.0-4.6) x10^3/uL Absolute Monos (auto) 0.73 (0.0-1.3) x10^3/uL Absolute Nucleated RBC 0.00 (0.00-0.01) x10^3u/L Lymphocytes % 19.1 L (24.0-44.0) % Monocytes % 6.7 (0.0-12.0) % Eosinophils % 1.4 (0.00-5.0) % Basophils % 0.7 (0.0-0.4) % Absolute Granulocytes 7.85 H (1.4-6.9) x10^3/uL Basophils # 0.08 (0-0.4) x10^3/uL Sodium 139 (137-145) mmol/L Potassium 3.4 L (3.5-5.1) mmol/L Chloride 106 (98-107) mmol/L Carbon Dioxide 23 (22-30) mmol/L Anion Gap 13.5 (5-15) MEQ/L BUN 19 (9-20) mg/dL Creatinine 0.78 (0.66-1.25) mg/dL Estimated GFR > 60.0 ML/MIN Glucose 91 (74-106) mg/dL Lactic Acid 1.4 (0.4-2.0) Calcium 9.6 (8.4-10.2) mg/dL Total Bilirubin 2.60 H (0.2-1.3) mg/dL AST 36 (17-59) U/L ALT 21 (0-50) U/L Alkaline Phosphatase 74 (38-126) U/L Serum Total Protein 7.7 (6.3-8.2) g/dL Albumin 4.5 (3.5-5.0) g/dL Lipase 44 (23-300) U/L - Progress Progress: improved, re-examined Progress Note: 02/05/22 21:45 Is given fluids and symptomatic treatment with morphine, Zofran, on reevaluation feeling better. CT showed preseptal cellulitis but no abscess. Normal white count, grossly unremarkable chemistries. I believe patient is having nausea vomiting secondary to clindamycin. I have recommended switching it to Augmentin and recommended Unasyn in here. Patient took out his IV and left AGAINST MEDICAL ADVICE without talking to me. Counseled pt/family regarding: lab results, diagnosis, need for follow-up, rad results - Departure Departure Disposition: Home Clinical Impression: Dental infection, Facial cellulitis Condition: Stable Critical Care Time: No
--- NOTE | 2022-02-06 08:55 | XRAY ---
Indication: Left facial swelling and pain. Abscess. Multiple contiguous axial images obtained through the facial bones. Sagittal and coronal reformatted images obtained. Comparison: None No acute fracture, suspicious bony lesions, or radiopaque foreign body. Orbits including roof, sorto, and floors intact. Mild mucosal thickening both ethmoid and floor left maxillary sinuses. Remaining paranasal sinuses and nasal passages are clear. Minimal nasal septal deviation to the right. Visualized noncontrasted soft tissues are unremarkable. No pathologic cervical/submandibular lymphadenopathy. Base of brain unremarkable. Impression: Mild paranasal sinus disease and minimal nasal septal deviation. Remaining CT facial bones negative. Comment: Preliminary interpretation made by [facility] [[email or web address]]. No critical discrepancy.
== END 2022-02-05 21:25 | disposition left against medical advice (07) ==
LOC: ED 18:54
DX: K04.7 Periapical abscess without sinus (principal); L03.211 Cellulitis of face; K08.89 Other specified disorders of teeth and supporting structures; R10.9 Unspecified abdominal pain; R11.2 Nausea with vomiting, unspecified; T36.8X5A Adverse effect of other systemic antibiotics, initial encounter; Z72.0 Tobacco use
CPT/HCPCS: 36000; 36415; 70486; 80053; 83605; 83690; 85025; 87040; 96374; 96375; 99284; J2270; J2405